=== PATIENT | female | born 1940 | race Caucasian/White ===

== ENCOUNTER 2019-04-14 17:54 | Observation (INO) ==
[2019-04-14 18:51] LABS: Basophils % 0.3 %; Eosinophils # 0.2 K/mcL (0.0-0.6); Eosinophils % 2.1 %; Hematocrit 36.9 % (35.3-44.9); Immature Granulocytes % 0.9 % (0-4); Lymphocytes # 0.4 K/mcL (0.6-4.6); Lymphocytes % 5.2 %; Mean Corpuscular HGB Conc 35.2 g/dL (31.6-35.5); Mean Corpuscular Hemoglobin 31.2 pg (28.0-33.3); Mean Corpuscular Volume 88.5 fL (83.0-100.0); Monocytes # 0.4 K/mcL (0.0-1.3); Monocytes % 5.4 %; Neutrophils # 6.8 K/mcL (1.6-8.9); Platelet Count 147 K/mcL (140-400); Red Blood Count 4.17 M/mcL (3.82-4.97); Segmented Neutrophils % 86.1 %; White Blood Count 7.9 K/mcL (4.3-11.1)
[2019-04-14] MEDS ORDERED: Ondansetron ODT 4 MG TAB.RAPDIS SL ONE (19:08)
[2019-04-14 19:13] LABS: BUN/Creatinine Ratio 27 (6-26); Blood Urea Nitrogen 26 mg/dL (8-23); Calcium 8.8 mg/dL (8.6-10.3); Carbon Dioxide 26 mEq/L (23-29); Chloride 98 mEq/L (98-107); Glucose 228 mg/dL (70-105); Osmolality,Calculated 294 (280-300); Potassium 3.7 mEq/L (3.5-5.1); Sodium 136 mEq/L (136-145); Troponin I < 0.03 ng/mL (< 0.04); eGFR For African Americans > 60 (> 60); eGFR For Non-African Americans 55 (> 60)
[2019-04-14] MEDS ORDERED: Aspirin 325 MG TABLET PO ONE (19:56)
[2019-04-14] MEDS: Acetaminophen 325 MG TABLET PO PRN (21:59)
[2019-04-15] MEDS ORDERED: Naloxone 0.4 MG/ML INJ IVP PRN (03:39)
[2019-04-15] MEDS ORDERED: *HR* Dextrose 50 % in Water (Syg) 50 ML SYRINGE IVP PRN (03:42)
[2019-04-15] MEDS ORDERED: Dextrose Gel 15 GM/37.5 ML TUBE PO PRN ×2 (03:42)
[2019-04-15] MEDS ORDERED: D5% in Water 1,000 ML IVC PRN (03:42)
[2019-04-15] MEDS: Acetaminophen 325 MG TABLET PO PRN (06:17)
[2019-04-15] MEDS ORDERED: Ondansetron 4 MG/2 ML VIAL IVP PRN (06:27)
[2019-04-15 08:15] LABS: Hematocrit 31.7 % (35.3-44.9); Mean Corpuscular Hemoglobin 31.8 pg (28.0-33.3); Mean Corpuscular Volume 88.3 fL (83.0-100.0); Mean Platelet Volume 12.3 fL (9.4-12.4); Platelet Count 113 K/mcL (140-400); Red Blood Count 3.59 M/mcL (3.82-4.97); Red Cell Distribution Width 13.8 % (11.5-14.5); White Blood Count 4.2 K/mcL (4.3-11.1)
[2019-04-15 08:18] LABS: Hemoglobin 11.4 g/dL (11.5-15.4)
[2019-04-15 08:24] LABS: BUN/Creatinine Ratio 26 (6-26); Blood Urea Nitrogen 24 mg/dL (8-23); Calcium 8.1 mg/dL (8.6-10.3); Carbon Dioxide 29 mEq/L (23-29); Chloride 97 mEq/L (98-107); Glucose 245 mg/dL (70-105); Osmolality,Calculated 290 (280-300); Potassium 3.3 mEq/L (3.5-5.1); Sodium 134 mEq/L (136-145); eGFR For African Americans > 60 (> 60); eGFR For Non-African Americans 59 (> 60)
[2019-04-15] MEDS: Insulin LISPRO 300 UNITS/3 ML VIAL SQ SCH ×2 (08:25→12:34)
[2019-04-15 15:12] VITALS: BP 149/72
[2019-04-15] MEDS ORDERED: *HR* Heparin 5,000 UNIT/ML VIAL SQ SCH (18:00)
== END 2019-04-15 17:25 | disposition home or self-care (01) ==
LOC: 3BNU 17:54 → EMEROOARM 17:54 → SUATTDRO 20:09 → 3BNU 20:42
PROVIDERS: ADMIT Internal Medicine; ATTEND Internal Medicine

== ENCOUNTER 2021-02-20 08:47 | Inpatient (IN) ==
[2021-02-20] MEDS ORDERED: Morphine Sulfate 2 MG/ML SYRINGE IVP ONE (09:06)
[2021-02-20 10:22] LABS: Bilirubin,Urine Negative (Negative); Blood,Urine Moderate (Negative); Clarity,Urine Clear (Clear); Color,Urine Light-Yellow (Yellow); Glucose,Urine (UA) Normal (Normal); Ketones,Urine Negative (Negative); Leukocyte Esterase,Urine Negative (Negative); Mucus,Urine Few per lpf (None-Few); Nitrite,Urine Negative (Negative); PH,Urine 6.5 pH Units (5.0-8.0); Protein,Urine >=600 mg/dL (Neg-Trace); RBC,Urine 0-3 per hpf (0-3); Specific Gravity,Urine 1.018 (1.010-1.025); Squamous Epithelial Cell,Urine Few per hpf (None-Few); Urobilinogen,Urine Normal (Normal); WBC,Urine 0-3 per hpf (0-3)
[2021-02-20 11:46] LABS: Basophils % 0.3 %; Eosinophils % 0.1 %; Hematocrit 33.4 % (35.3-44.9); Hemoglobin 11.1 g/dL (11.5-15.4); Immature Granulocytes % 0.5 % (0-4); Lymphocytes # 0.7 K/mcL (0.6-4.6); Lymphocytes % 7.4 %; Mean Corpuscular HGB Conc 33.2 g/dL (31.6-35.5); Mean Corpuscular Hemoglobin 29.5 pg (28.0-33.3); Mean Corpuscular Volume 88.8 fL (83.0-100.0); Mean Platelet Volume 11.5 fL (9.4-12.4); Monocytes # 0.7 K/mcL (0.0-1.3); Monocytes % 6.6 %; Neutrophils # 8.3 K/mcL (1.6-8.9); Platelet Count 170 K/mcL (140-400); Red Blood Count 3.76 M/mcL (3.82-4.97); Red Cell Distribution Width 14.2 % (11.5-14.5); Segmented Neutrophils % 85.1 %; White Blood Count 9.8 K/mcL (4.3-11.1)
[2021-02-20 11:56] LABS: Prothrombin Time 11.4 Seconds (9.4-12.1)
[2021-02-20 12:15] LABS: Alanine Aminotransferase 20 Units/L (7-52); Albumin 3.7 g/dL (3.5-5.7); Albumin/Globulin Ratio 1.3 (1.1-2.2); Alkaline Phosphatase 79 Units/L (34-104); Aspartate Amino Transferase 23 Units/L (13-39); BUN/Creatinine Ratio 22 (6-26); Bilirubin,Direct 0.1 mg/dL (0.0-0.2); Bilirubin,Indirect 0.3 mg/dL (0.0-1.0); Bilirubin,Total 0.4 mg/dL (0.3-1.0); Blood Urea Nitrogen 23 mg/dL (8-23); Calcium 9.4 mg/dL (8.6-10.3); Carbon Dioxide 30 mEq/L (23-29); Chloride 105 mEq/L (98-107); Creatine Kinase 554 Units/L (30-223); Globulin 2.9 g/dL (2.4-3.5); Glucose 136 mg/dL (70-105); Lipase 19 Units/L (11-82); Osmolality,Calculated 300 (280-300); Potassium 3.8 mEq/L (3.5-5.1); Sodium 142 mEq/L (136-145); Total Protein 6.6 g/dL (6.4-8.9); eGFR For African Americans > 60 (> 60); eGFR For Non-African Americans 51 (> 60)
[2021-02-20 12:16] LABS: Troponin I 0.09 ng/mL (< 0.04)
[2021-02-20] MEDS ORDERED: Melatonin 3 MG TABLET PO PRN (15:18)
[2021-02-20] MEDS ORDERED: Naloxone 0.4 MG/ML INJ IVP PRN (15:18)
[2021-02-20] MEDS ORDERED: Acetaminophen 325 MG TABLET PO PRN (15:18)
[2021-02-20] MEDS ORDERED: Mag Hydrox/Al Hydrox/Simeth 30 ML UDC PO PRN (15:18)
[2021-02-20] MEDS ORDERED: Perflutren Lipid Microsphere 1.3 ML in 0.9 % Sodium Chloride 8.7 ML IVP PRN ×2 (15:21→15:59)
[2021-02-20] MEDS ORDERED: D5% in Water 1,000 ML IVC PRN (15:23)
[2021-02-20] MEDS ORDERED: *HR* Dextrose 50 % in Water (Syg) 50 ML SYRINGE IVP PRN (15:23)
[2021-02-20] MEDS ORDERED: Dextrose Gel 15 GM/37.5 ML TUBE PO PRN ×2 (15:23)
[2021-02-20] MEDS ORDERED: 0.9 % Sodium Chloride 1,000 ML IVC SCH (15:30)
[2021-02-20] MEDS: Insulin LISPRO 300 UNITS/3 ML VIAL SUBQ SCH ×2 (17:36→20:44)
[2021-02-20] MEDS: *HR* OxyCODONE Immed Rel 5 MG TABLET PO PRN (17:46)
[2021-02-20] MEDS ORDERED: *HR* Heparin 5,000 UNIT/ML VIAL SQ SCH (18:00)
[2021-02-20] MEDS ORDERED: *HR* Heparin 5,000 UNIT/ML VIAL IVP PRN ×2 (18:28)
[2021-02-20] MEDS ORDERED: *HR* Heparin 5,000 UNIT/ML VIAL IVP ONE (18:28)
[2021-02-20] MEDS ORDERED: Heparin 25,000UNIT/250ML 1/2NS 25,000 UNIT/250 ML IV.SOLN IVC SCH (18:30)
[2021-02-20] MEDS: Carbidopa/Levodopa 25/100 TABLET PO SCH (18:34)
[2021-02-20 19:17] LABS: Hematocrit 32.4 % (35.3-44.9); Hemoglobin 10.8 g/dL (11.5-15.4); Mean Corpuscular HGB Conc 33.3 g/dL (31.6-35.5); Mean Corpuscular Hemoglobin 29.3 pg (28.0-33.3); Mean Platelet Volume 11.7 fL (9.4-12.4); Platelet Count 155 K/mcL (140-400); Red Blood Count 3.68 M/mcL (3.82-4.97); Red Cell Distribution Width 14.2 % (11.5-14.5); White Blood Count 6.2 K/mcL (4.3-11.1)
[2021-02-20 19:27] LABS: Heparin anti-factor XA UFH < 0.04 IU/mL (0.30-0.70)
[2021-02-20 19:28] LABS: Prothrombin Time 11.4 Seconds (9.4-12.1)
[2021-02-20] MEDS: Melatonin 3 MG TABLET PO SCH (20:44)
[2021-02-21 03:25] LABS: Hematocrit 29.8 % (35.3-44.9); Hemoglobin 9.8 g/dL (11.5-15.4); Mean Corpuscular HGB Conc 32.9 g/dL (31.6-35.5); Mean Corpuscular Hemoglobin 29.5 pg (28.0-33.3); Mean Corpuscular Volume 89.8 fL (83.0-100.0); Platelet Count 155 K/mcL (140-400); Red Blood Count 3.32 M/mcL (3.82-4.97); Red Cell Distribution Width 14.6 % (11.5-14.5)
[2021-02-21] MEDS: *HR* OxyCODONE Immed Rel 5 MG TABLET PO PRN ×2 (03:32→12:24)
[2021-02-21 03:43] LABS: Calcium 8.8 mg/dL (8.6-10.3)
[2021-02-21] MEDS: lisinopriL 20 MG TABLET PO SCH (10:01)
[2021-02-21] MEDS: Primidone 50 MG TABLET PO SCH (10:01)
[2021-02-21] MEDS: Aspirin 81 MG TAB.CHEW PO SCH (10:01)
[2021-02-21] MEDS: amLODIPine 5 MG TABLET PO SCH (10:01)
[2021-02-21] MEDS: hydroCHLOROthiazide 25 MG TABLET PO SCH (10:02)
[2021-02-21] MEDS: Ondansetron ODT 4 MG TAB.RAPDIS SL PRN (12:23)
[2021-02-21] MEDS: Insulin LISPRO 300 UNITS/3 ML VIAL SUBQ SCH ×3 (16:59→19:49)
[2021-02-21] MEDS: Carbidopa/Levodopa 25/100 TABLET PO SCH ×2 (17:00→17:32)
[2021-02-21] MEDS: Acetaminophen IV 1,000 MG/100 ML BAG IVPB SCH ×3 (17:01→23:54)
[2021-02-21] MEDS: 0.9 % Sodium Chloride 1,000 ML IVC SCH (17:31)
[2021-02-21] MEDS: *HR* Heparin 5,000 UNIT/ML VIAL SQ SCH (17:32)
[2021-02-21] MEDS: Melatonin 3 MG TABLET PO SCH (20:43)
[2021-02-22] MEDS: 0.9 % Sodium Chloride 1,000 ML IVC SCH ×2 (05:47→17:40)
[2021-02-22] MEDS: Acetaminophen IV 1,000 MG/100 ML BAG IVPB SCH ×3 (05:48→17:39)
[2021-02-22] MEDS: *HR* Heparin 5,000 UNIT/ML VIAL SQ SCH ×2 (05:49→19:24)
[2021-02-22] MEDS: Aspirin 81 MG TAB.CHEW PO SCH (07:19)
[2021-02-22] MEDS: Carbidopa/Levodopa 25/100 TABLET PO SCH ×3 (07:19→17:39)
[2021-02-22] MEDS: lisinopriL 20 MG TABLET PO SCH (07:19)
[2021-02-22] MEDS: hydroCHLOROthiazide 25 MG TABLET PO SCH (07:19)
[2021-02-22] MEDS: Primidone 50 MG TABLET PO SCH (07:19)
[2021-02-22] MEDS: Insulin LISPRO 300 UNITS/3 ML VIAL SUBQ SCH ×4 (07:20→20:04)
[2021-02-22] MEDS: amLODIPine 5 MG TABLET PO SCH (07:20)
[2021-02-22] MEDS: Ondansetron ODT 4 MG TAB.RAPDIS SL PRN (11:21)
[2021-02-22] MEDS: *HR* OxyCODONE Immed Rel 5 MG TABLET PO PRN ×2 (12:10→20:10)
[2021-02-22] MEDS: *HR* HYDROmorphone (PF) 1 MG/ML SYRINGE IVP PRN (15:59)
[2021-02-22] MEDS: Melatonin 3 MG TABLET PO SCH (20:08)
[2021-02-23] MEDS: Acetaminophen IV 1,000 MG/100 ML BAG IVPB SCH ×3 (01:13→12:50)
[2021-02-23] MEDS: 0.9 % Sodium Chloride 1,000 ML IVC SCH ×3 (06:25→21:25)
[2021-02-23] MEDS: *HR* Heparin 5,000 UNIT/ML VIAL SQ SCH ×2 (06:25→17:32)
[2021-02-23] MEDS: Insulin LISPRO 300 UNITS/3 ML VIAL SUBQ SCH ×4 (08:24→21:24)
[2021-02-23] MEDS: Aspirin 81 MG TAB.CHEW PO SCH (09:04)
[2021-02-23] MEDS: amLODIPine 5 MG TABLET PO SCH (09:04)
[2021-02-23] MEDS: Primidone 50 MG TABLET PO SCH (09:04)
[2021-02-23] MEDS: hydroCHLOROthiazide 25 MG TABLET PO SCH (09:04)
[2021-02-23] MEDS: lisinopriL 20 MG TABLET PO SCH (09:04)
[2021-02-23] MEDS: Carbidopa/Levodopa 25/100 TABLET PO SCH ×3 (09:32→17:32)
[2021-02-23] MEDS: *HR* OxyCODONE Immed Rel 5 MG TABLET PO PRN ×2 (11:44→17:39)
[2021-02-23 13:14] LABS: Calcium 8.4 mg/dL (8.6-10.3); Potassium 3.4 mEq/L (3.5-5.1)
[2021-02-23] MEDS ORDERED: Isovue-370 500 ML BOTTLE IVP ONE (13:21)
[2021-02-23] MEDS: Ondansetron 4 MG/2 ML VIAL IVP PRN (18:26)
[2021-02-23] MEDS: Melatonin 3 MG TABLET PO SCH (21:23)
[2021-02-24] MEDS: 0.9 % Sodium Chloride 1,000 ML IVC SCH (05:19)
[2021-02-24] MEDS: Insulin LISPRO 300 UNITS/3 ML VIAL SUBQ SCH ×4 (09:18→20:21)
[2021-02-24] MEDS: hydroCHLOROthiazide 25 MG TABLET PO SCH (09:28)
[2021-02-24] MEDS: *HR* Heparin 5,000 UNIT/ML VIAL SQ SCH ×2 (09:28→16:52)
[2021-02-24] MEDS: *HR* OxyCODONE Immed Rel 5 MG TABLET PO PRN ×2 (09:28→16:51)
[2021-02-24] MEDS: Aspirin 81 MG TAB.CHEW PO SCH (09:29)
[2021-02-24] MEDS: Carbidopa/Levodopa 25/100 TABLET PO SCH ×3 (09:29→16:51)
[2021-02-24] MEDS: amLODIPine 5 MG TABLET PO SCH (09:30)
[2021-02-24] MEDS: Primidone 50 MG TABLET PO SCH (09:30)
[2021-02-24] MEDS: lisinopriL 20 MG TABLET PO SCH (09:31)
[2021-02-24] MEDS: Ondansetron 4 MG/2 ML VIAL IVP PRN (09:42)
[2021-02-24] MEDS: *HR* HYDROmorphone (PF) 1 MG/ML SYRINGE IVP PRN (13:22)
[2021-02-24] MEDS: Melatonin 3 MG TABLET PO SCH (20:20)
[2021-02-25] MEDS: *HR* OxyCODONE Immed Rel 5 MG TABLET PO PRN (01:39)
[2021-02-25] MEDS: *HR* Heparin 5,000 UNIT/ML VIAL SQ SCH ×2 (04:42→17:18)
[2021-02-25 07:03] VITALS: O2SAT 93
[2021-02-25] MEDS: Aspirin 81 MG TAB.CHEW PO SCH (09:27)
[2021-02-25] MEDS: hydroCHLOROthiazide 25 MG TABLET PO SCH (09:27)
[2021-02-25] MEDS: Primidone 50 MG TABLET PO SCH (09:27)
[2021-02-25] MEDS: amLODIPine 5 MG TABLET PO SCH (09:27)
[2021-02-25] MEDS: lisinopriL 20 MG TABLET PO SCH (09:27)
[2021-02-25] MEDS: Carbidopa/Levodopa 25/100 TABLET PO SCH ×3 (09:30→17:18)
[2021-02-25] MEDS: Insulin LISPRO 300 UNITS/3 ML VIAL SUBQ SCH ×3 (09:30→17:18)
[2021-02-25] MEDS ORDERED: *HR* HYDROmorphone (PF) 1 MG/ML SYRINGE IVP ONE (10:24)
[2021-02-25] MEDS ORDERED: *HR* OxyCODONE/APAP 7.5/325 TABLET PO SCH ×2 (12:00→16:00)
[2021-02-25 14:03] LABS: Adenovirus Not Detected (Not Detect); Bordetella Pertussis Not Detected (Not Detect); Chlamydophila pneumoniae Not Detected (Not Detect); Coronavirus 229E Not Detected (Not Detect); Coronavirus HKU1 Not Detected (Not Detect); Coronavirus NL63 Not Detected (Not Detect); Coronavirus OC43 Not Detected (Not Detect); Human Metapneumovirus Not Detected (Not Detect); Human Rhinovirus/Enterovirus Not Detected (Not Detect); Influenza A Subtype 2009 H1 Not Detected (Not Detect); Influenza B Not Detected (Not Detect); Mycoplasma pneumoniae Not Detected (Not Detect); Parainfluenza Virus 1 Not Detected (Not Detect); Parainfluenza Virus 2 Not Detected (Not Detect); Parainfluenza Virus 3 Not Detected (Not Detect); Parainfluenza Virus 4 Not Detected (Not Detect); Respiratory Syncytial Virus Not Detected (Not Detect); SARS-CoV-2 Not Detected (Not Detect)
[2021-02-25 15:31] VITALS: BP 157/69; PULSE 70; TEMP 97.4
== END 2021-02-25 18:29 | DRG 535 ==
LOC: 3BNU 08:47 → EMEROOARM 08:47 → SUATTDRO 15:38 → 3BNU 16:47 → SUATTDRO 02-21 12:54
PROVIDERS: ADMIT Family Medicine; ATTEND Internal Medicine